=== PATIENT | male | born 1955 | race Caucasian/White ===

== ENCOUNTER 2023-03-12 13:56 | Emergency (ER) | payer MEDICARE, SELFPAY ==
[2023-03-12 13:58] VITALS: BP 187/66; PULSE 67; RESP 18; TEMP 36.7; O2SAT 98; BMI 27.3
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
[2023-03-12 14:16] LABS: Basophils # 0.1 10^3/uL (0.0-0.1); Basophils % 0.4 %; Eosinophils # 0.5 10^3/uL (0.0-0.8); Eosinophils % 3.6 %; Hematocrit 39.8 % (37-53); Lymphocytes # 1.2 10^3/uL (0.8-4.8); Lymphocytes % 9.2 %; Mean Corpuscular HGB Conc 33.4 g/dL (30-55); Mean Corpuscular Volume 89.8 fl (82-101); Monocytes # 1.1 10^3/uL (0.2-0.9); Monocytes % 7.9 %; Neutrophils # 10.56 10^3/uL (1.8-7.7); Neutrophils % 78.5 %; Nucleated Red Blood Cells % 0 %; Platelet Count 271 10^3/cmm (157-399); Red Blood Count 4.43 10^6/uL (3.85-5.65); Red Cell Distribution Width 14.4 % (12.1-15.1); White Blood Count 13.44 10^3/uL (3.29-11.43)
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
[2023-03-12 14:21] VITALS: O2SAT 100
[2023-03-12 14:35] LABS: Glucose Point of Care 89 mg/dL (70-110)
[2023-03-12 14:35] LABS: Glucose Point of Care 92 mg/dL (70-110)
[2023-03-12 14:40] LABS: Alanine Aminotransferase 23 U/L (0-41); Alkaline Phosphatase 112 U/L (40-130); Anion Gap 14.2 (5-19); Aspartate Amino Transferase 29 U/L (0-40); Blood Urea Nitrogen 19 mg/dL (8-23); Calcium 8.7 mg/dL (8.5-10.5); Carbon Dioxide 25 mmol/L (22-29); Chloride 102 mmol/L (98-107); Globulin 3.3 g/dL (1.3-4.6); Glomerular Filtration Rate 112.1 mL/min (90-130); Glucose 117 mg/dL (65-115); Osmolality Calculated 287 mOsm/kg (285-295); Potassium 4.2 mmol/L (3.5-5.1); Sodium 137 mmol/L (136-145); Total Bilirubin 0.4 mg/dL (0.15-1.2); Total Protein 7.3 g/dL (6.6-8.7)
--- NOTE | 2023-03-12 15:09 | PC.NURSE ---
repeat glucose 89 @1435 via fingerstick, ED provider notified. verbal orders per EMMANUELLE Dawson to recheck glucose at 1505.
--- NOTE | 2023-03-12 15:10 | PC.NURSE ---
repeat glucose @1505 117 via fingerstick. EMMANUELLE Dawson notified, no further orders at this time.
[2023-03-12 15:11] LABS: Glucose Point of Care 117 mg/dL (70-110)
--- NOTE | 2023-03-12 15:40 | ECG_ITS ---
[facility] Test Date: 2023-03-12 Pat Name: Les Morin Department: Room: Gender: Male [employer]: : 1955 Requested By: Jose Luis Victor Order Number: [id number] Waylon MD: Paxton Carlos M.D. Measurements Intervals [place] Rate: 74 P: 60 PA: 153 QRS: 119 QRSD: 136 T: 67 QT: 433 QTc: 481 Interpretive Statements SINUS RHYTHM RIGHT BUNDLE BRANCH BLOCK [120+ ms QRS DURATION, UPRIGHT V1, 40+ ms S IN I/aVL/V4/V5/V6] LEFT POSTERIOR FASCICULAR BLOCK [QRS AXIS > 109, INFERIOR Q] No previous ECG available for comparison Electronically Signed On 03-13-2023 11:06:18 ENTRY ANALYST by Paxton Carlos M.D. [id number]
--- NOTE | 2023-03-12 16:08 | PC.NURSE ---
repeat glucose 155 @1607 via fingerstick. ED provider notified, no further orders at this time.
[2023-03-12 16:10] LABS: Glucose Point of Care 155 mg/dL (70-110)
[2023-03-12 17:44] VITALS: O2SAT 100
--- NOTE | 2023-03-12 19:28 | PC.NURSE ---
Occupational Healthcare Discharge Instructions left at facility. This nurse contacted pt and made pt aware of papers being left behind. pt had no further questions.
== END 2023-03-12 17:44 | disposition home or self-care (01) ==
PROVIDERS: Emergency Provider Nurse Practitioner Family
DX: Z04.1 Encounter for examination and observation following transport accident (principal); R55 Syncope and collapse; E11.649 Type 2 diabetes mellitus with hypoglycemia without coma; Z79.4 Long term (current) use of insulin; Z79.82 Long term (current) use of aspirin; V89.2XXA Person injured in unspecified motor-vehicle accident, traffic, initial encounter; Z96.41 Presence of insulin pump (external) (internal)
CPT/HCPCS: 36416; 70450; 71045; 72125; 80053; 82962; 85025; 93005; 99285